=== PATIENT | female | born 1950 ===

== ENCOUNTER 2018-01-23 09:26 | Outpatient (CLI) | payer OTHER | END 2018-01-23 09:29 | disposition home or self-care (01) | LOC: SONOGRAMA 09:26 | DX: E04.2 Nontoxic multinodular goiter (principal) ==

== ENCOUNTER 2023-01-13 10:32 | Outpatient (CLI) | payer OTHER | END 2023-01-13 10:35 | disposition home or self-care (01) | LOC: SONOGRAMA 10:32 | PROVIDERS: ATTEND Pathology Anatomic Pathology & Clinical Pathology | DX: D34 Benign neoplasm of thyroid gland (principal); E04.9 Nontoxic goiter, unspecified ==

== ENCOUNTER 2024-05-25 07:00 | Outpatient (CLI) | payer OTHER ==
[~2024-05-25] VITALS: Ht 160 cm; Wt 59.0 kg
[2024-05-25 10:03] LABS: COVID-19 AG NEGATIVE (NEGATIVE)
[2024-05-25 10:17] VITALS: BP 128/77
[2024-05-25] MEDS ORDERED: POTASSIUM CITR15 MEQ (10:18)
[2024-05-25] MEDS ORDERED: NAMENDA XR7 MG (10:18)
[2024-05-25] MEDS ORDERED: PLAQUENIL (10:18)
[2024-05-25] MEDS ORDERED: HYDRALAZINE HCL25 MG PO (10:19)
[2024-05-25] MEDS ORDERED: VAGIFEM10 MCG (10:19)
[2024-05-25] MEDS ORDERED: ECOTRIN81 MG PO (10:19)
[2024-05-25] MEDS ORDERED: AVAPRO300 MG PO (10:20)
[2024-05-25] MEDS ORDERED: TOPROL XL50 M1 PO (10:20)
[2024-05-25] MEDS ORDERED: PEPCID40 MG PO (10:21)
[2024-05-25] MEDS ORDERED: PLAVIX75 MG PO (10:21)
[2024-05-25] MEDS ORDERED: CELLCEPT500 MG PO (10:21)
[2024-05-25] MEDS ORDERED: ISOSORBIDE DINI30 MG PO (10:22)
[2024-05-25] MEDS ORDERED: ZETIA10 MG PO (10:22)
[2024-05-25] MEDS ORDERED: FOLIC ACID0.8 M1 PO (10:23)
[2024-05-25] MEDS ORDERED: GUMMI BEAR MUL1 EACH PO (10:23)
[2024-05-25 10:36] LABS: INR 1.04; PARTIAL THROMBOPLASTIN TIME 25.1 SECONDS (22.0-34.0); PROTHROMBIN TIME 11.3 SECONDS (9.0-11.5)
== END 2024-05-25 07:15 | disposition home or self-care (01) ==
LOC: LAB 07:00 → ADM 07:45 → CIR.AMB 06-01 07:45 → EDSTATUS 06-01 07:45 → CIR.AMB 06-01 10:15
PROVIDERS: ATTEND Urology
DX: N20.0 Calculus of kidney (principal)